=== PATIENT | male | born 1950 | race Caucasian/White ===

== ENCOUNTER 2017-07-08 16:40 | Emergency (ER) | payer OTHER ==
[2017-07-08 16:50] VITALS: BP 127/65
[2017-07-08] MEDS ORDERED: Fluorescein Sodium TOPICAL* 1 MG TEST OPHTHALMIC ONE (17:29)
[2017-07-08] MEDS ORDERED: Proparacaine 0.5% OPHTH.SOL* 15 ML BTL RIGHT EYE ONE (17:29)
[2017-07-08] MEDS ORDERED: Tetracaine 0.5% OPTH.SOL 15ML* BTL ONE (17:37)
--- NOTE | 2017-07-08 17:38 | UC ---
Eye Complaint HPI - HPI Summary HPI Summary: Patient presents with complaints of non-truamtic right eye pain onset this morning lasting 30 minutes, he was on his was to [place] when suddenly the pain just went away. He states that now the pain has returned. He states earlier today the pain was severe, and now he states it is a sharp pain that feels like it is under the lower lid. He reports slight change in his vision, and pain with movement of his right eye. He denies eye drainage, fever or chills. He denies time spent in darkened room prior to symptoms. Prior to the eye pain the patient had been wearing protective glasses. - History of Current Complaint Chief Complaint: UCEye Stated Complaint: EYE COMPLAINT Time Seen by Provider: 07/08/17 17:11 Hx Obtained From: Patient Onset/Duration: Sudden Onset Timing: Intermittent Episode Lasting - 30 minutes this morning at 12:00 lasting until 12:30, and was pain free x one hour, then aroung 1:30 it cam back and has been constant. Severity Initially: Severe Severity Currently: Moderate Aggravating Factor(s): Light Alleviating Factor(s): Other - closing the eye - Risk Factors Penetrating Injury Risk Factor: Negative Acute Glaucoma Risk Factors: Negative - Allergies/Home Medications Allergies/Adverse Reactions: Allergies Allergy/AdvReac Type Severity Reaction Status Date / Time Iodinated Contrast Media Allergy syncope Verified 07/08/17 16:50 [IV CONTRAST DYE] Home Medications: Home Medications Pantoprazole TAB (NF) [Protonix TAB (NF)] 20 mg PO DAILY 07/08/17 [History Confirmed 07/08/17] PMH/Surg Hx/FS Hx/Imm Hx Previously Healthy: Yes - Surgical History Surgical History: Yes Surgery Procedure, Year, and Place: repair of shattered disk in the back, fusion. appendectomy. hernia. CYSTOSCOPY WITH LASER. - 1996 - FRACTURE - Family History Known Family History: Positive: Cardiac Disease, Hypertension - Social History Occupation: Employed Full-time Lives: Alone Alcohol Use: Daily Alcohol Amount: glass of wine a day Substance Use Type: None Smoking Status (MU): Never Smoked Tobacco When Did the Patient Quit Smoking/Using Tobacco: 2-3/WEEK Review of Systems Eyes: Other - right eye pain All Other Systems Reviewed And Are Negative: Yes Physical Exam Triage Information Reviewed: Yes Appearance: Well-Appearing Vital Signs: Initial Vital Signs Temp 98.3 F 07/08/17 16:46 Pulse 57 07/08/17 16:46 Resp 16 07/08/17 16:46 BP 127/65 07/08/17 16:46 Pulse Ox 98 07/08/17 16:46 Eyes: Positive: Conjunctiva Clear, Other: - sclera with mild injection. No foreign body visualized. Eye Complaint Course/Dx - Course Course Of Treatment: Patient presents with complaints of right eye pain sudden onset at noon that lasted one hours then went away and return one hour later and has been constant since then. He denies any significant change in vision, trauma, or recent illnesses. The patient had a similar episode several months ago the resolve spontaneously. Tetracaine drop was placed in the eye, and flurosence stain applied. I did not see foreign body, denrite formation, or corneal abrasions. I did recommend that the patient follow up with Dr. Springer in the morning or if the pain becomes worse to go to the er tonight. He verbalized understading of the discharge plan. - Differential Dx/Diagnosis Differential Diagnosis/HQI/PQRI: Other - eye pain Provider Diagnoses: eye pain Discharge - Discharge Plan Condition: Stable Disposition: HOME Patient Education Materials: Eye Pain (ED) Referrals: Ava Mcgowan MD [Primary Care Provider] - Erik Springer MD [Medical Doctor] -
[2017-07-08] MEDS ORDERED: Tetracaine 0.5% OPTH.SOL 4 ML* 1 DROP BTL RIGHT EYE SCH (18:00)
== END 2017-07-08 17:59 | disposition home or self-care (01) ==
LOC: UCEAST 16:40
DX: H57.11 Ocular pain, right eye (principal)
CPT/HCPCS: 99212; A9270-GY; G0463

== ENCOUNTER 2018-06-02 14:15 | Emergency (ER) | payer SELFPAY ==
[2018-06-02 14:25] VITALS: BP 133/56
--- NOTE | 2018-06-02 14:37 | UC ---
Lower Extremity/Ankle HPI - HPI Summary HPI Summary: 67 y/o male presents to the urgent care c/o Rt ankle pain s/p fall yesterday around 1600pm. Pt reports falling and twisting his Rt ankle. He applied ice and took Tylenol Po for pain. This morning he woke up w/ a lot of pain. He is able to bear weight. Pain is 6/10 w/ walking and movement and 2/10 at rest. Associated w/ moderate swelling in the lateral malleolus. Pt denies fever, calf pain, numbness or tingling over the ankle of foot, SOB, chest pain, abdominal pain, N/v/D. - History of Current Complaint Chief Complaint: UCLowerExtremity Stated Complaint: R ANKLE INJURY Time Seen by Provider: 06/02/18 14:34 Hx Obtained From: Patient Onset/Duration: Sudden Onset, Lasting Days - 1 day, Worse Since - this morning Severity Initially: Moderate Severity Currently: Moderate Pain Intensity: 6 Pain Scale Used: 0-10 Numeric Aggravating Factor(s): Standing, Ambulation Alleviating Factor(s): Rest, Ice Able to Bear Weight: Yes - Risk Factors Gout Risk Factors: Negative DVT Risk Factors: Negative Septic Arthritis Risk Factor: Negative - Allergies/Home Medications Allergies/Adverse Reactions: Allergies Allergy/AdvReac Type Severity Reaction Status Date / Time Iodinated Contrast- Oral and Allergy See Comment Verified 06/02/18 14:25 IV Dye PMH/Surg Hx/FS Hx/Imm Hx Previously Healthy: Yes GI/ History: Kidney Stones - Surgical History Surgical History: Yes Surgery Procedure, Year, and Place: repair of shattered disk in the back, fusion. appendectomy. hernia. CYSTOSCOPY WITH LASER. 1996 - FRACTURE - Family History Known Family History: Positive: Cardiac Disease, Hypertension - Social History Occupation: Retired Lives: With Family Alcohol Use: Daily Alcohol Amount: glass of wine a day Substance Use Type: None Smoking Status (MU): Never Smoked Tobacco When Did the Patient Quit Smoking/Using Tobacco: 2-3/WEEK Review of Systems Constitutional: Negative Skin: Negative Eyes: Negative ENT: Negative Respiratory: Negative Cardiovascular: Negative Gastrointestinal: Negative Genitourinary: Negative Motor: Negative Neurovascular: Negative Musculoskeletal: Decreased ROM - RT ankle, Other: - Rt ankle pain and swelling s /p fall Neurological: Negative Psychological: Negative Is Patient Immunocompromised?: No All Other Systems Reviewed And Are Negative: Yes Physical Exam - Summary Physical Exam Summary: Vital Signs Reviewed: Yes General: well developed, well nourished male, sitting in the examining table w/ o any apparent distress Eyes: Positive: Conjunctiva Clear - PERRLA, EOMI, ENT: Positive: Normal ENT inspection, Hearing grossly normal, Pharynx normal, TMs normal Neck: Positive: Supple, Nontender, No Lymphadenopathy Respiratory: Positive: Chest non-tender, Lungs clear, Normal breath sounds, No respiratory distress Cardiovascular: Positive: RRR, No Murmur, Pulses Normal, Brisk Capillary Refill Abdomen Description: Positive: Nontender, No Organomegaly, Soft. Negative: CVA Tenderness (R), CVA Tenderness (L) Bowel Sounds: Positive: Present Musculoskeletal: - Ankle: Pt is able to bear weight and ambulate w/ limping. The R ankle is without obvious asymmetry or deformity when compared to the L ankle. Decreased ROM due to pain. Moderate swelling at the lateral malleolus, with tenderness to palpation. No ecchymosis or bruising observed. No tenderness to palpation over the medial malleolus , no swelling observed. Talar tilt test is negative for ligament laxity to valgus or varus stress. Negative anterior drawer. Peroneal nerve is intact with strong eversion and plantar flexion. Positive sensation over the Rt foot and Rt ankle, positive pulses, capillary refill intact Neurological Exam: Normal Psychological Exam: Normal Skin: warm and dry Triage Information Reviewed: Yes Vital Signs: Initial Vital Signs Temp 96.7 F 06/02/18 14:19 Pulse 57 06/02/18 14:19 Resp 18 06/02/18 14:19 BP 133/56 06/02/18 14:19 Pulse Ox 98 06/02/18 14:19 Lower Extremity Course/Dx - Course Course Of Treatment: 67 y/o male presents to the urgent care c/o Rt ankle pain s /p fall yesterday around 1600pm. Pt reports falling and twisting his Rt ankle. He applied ice and took Tylenol Po for pain. This morning he woke up w/ a lot of pain. He is able to bear weight. Pain is 6/10 w/ walking and movement and 2/ 10 at rest. Associated w/ moderate swelling in the lateral malleolus. Pt denies fever, calf pain, numbness or tingling over the ankle of foot, SOB, chest pain, abdominal pain, N/v/D.Hx obtained. - Differential Dx/Diagnosis Differential Diagnosis/HQI/PQRI: Fracture (Closed), Sprain, Strain, Tendonitis Provider Diagnoses: 1- Rt ankle pain s/p fall. 2- Discharge - Discharge Plan Condition: Stable Disposition: HOME Referrals: Ava Mcgowan MD [Primary Care Provider] - 1 Week - Billing Disposition and Condition Condition: STABLE Disposition: Home
--- NOTE | 2018-06-02 15:18 | RAD ---
HISTORY: RT ankle pain s/p fall COMPARISONS: None VIEWS: 3, Frontal, lateral, and oblique views of the right ankle FINDINGS: BONE DENSITY: Normal. BONES: There is no displaced fracture. JOINTS: There is no arthropathy. ALIGNMENT: There is no dislocation. SOFT TISSUES: There is mild circumferential soft tissue swelling. OTHER FINDINGS: None. IMPRESSION: SOFT TISSUE SWELLING. NO ACUTE OSSEOUS INJURY. IF SYMPTOMS PERSIST, RECOMMEND REPEAT IMAGING.
== END 2018-06-02 15:45 | disposition home or self-care (01) ==
LOC: UCEAST 14:15
DX: M25.571 Pain in right ankle and joints of right foot (principal); Z91.041 Radiographic dye allergy status; W19.XXXA Unspecified fall, initial encounter; Y92.9 Unspecified place or not applicable; X50.1XXA Overexertion from prolonged static or awkward postures, initial encounter
CPT/HCPCS: 99202; G0463

== ENCOUNTER 2018-08-29 09:41 | Emergency (ER) | payer OTHER ==
--- OUTSIDE RECORDS SUMMARY | 2018-08-29 09:48 | XMS REPORT ---
:1950 External Reference #:[id number] Author Organization [employer] Address [address] [place] [address] [place] [address] Phone [phone] Care Team Providers Name Role Phone Ava Mcgowan MD Primary Care Physician Unavailable Payers Type Date Identification Numbers Payment Provider Subscriber Commercial Policy Number: [id number] [employer] Errol Nelson Group Number: [id number] [address] Group Name: [place] [address] PayID: [id number] Problems Date Description Provider Status Onset: 11/04/2013 Adhesive capsulitis of shoulder Maximo Acevedo M.D. Active Onset: 08/12/2018 Lumbar radiculopathy Jonas Barrientos M.D. Active Onset: 05/04/2015 Displacement of lumbar intervertebral Jonas Barrientos M.D. 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 myelopathy Family History Date Family Member(s) Problem(s) Comments General Cancer Social History Type Date Description Comments Lives With Spouse Occupation Publicity Writer Occupation Currently Working ETOH Use Occasionally consumes alcohol Smoking Patient has never smoked Recreational Drug Use Denies Drug Use Exercise Type/Frequency Exercises regularly Allergies, Adverse Reactions, Alerts Date Description Reaction Status Severity Comments 11/04/2013 IV Contrast active Medications Medication Date Status Form Strength Qnty SIG Indications Ordering Provider Ibuprofen Active Tablets 800mg 90tabs by mouth Unknown 000 three times a day as needed Pantoprazole Active Tablets DR 20mg 1 by Unknown Sodium 000 mouth every day Lorazepam Hx Tablets 1mg 1-2 tabs Ortega, 000 - by mouth MD Ava each day 018 as needed for anxiety. Oxycodone-Aceta 00/00/0 Hx Tablets 5-325mg Ortega, minophen 000 - MD Ava 018 Carisoprodol 00/00/0 Hx Tablets 350mg 1 tab 8h Ortega, 000 - as MD Ava needed 018 Vital Signs Date Vital Result Comment 08/12/2018 Height 68 inches 5'8" Weight 147.00 lb BP Systolic Sitting 130 mmHg BP Diastolic Sitting 80 mmHg Pain Level 1 BMI (Body Mass Index) 22.3 kg/m2 06/22/2015 Weight 137.00 lb Heart Rate 54 /min BP Systolic Sitting 138 mmHg BP Diastolic Sitting 82 mmHg Pain Level 2 L buttock 05/25/2015 Height 68 inches 5'8" Weight 139.00 lb Heart Rate 50 /min BP Systolic Sitting 122 mmHg BP Diastolic Sitting 78 mmHg Pain Level 1 L buttock BMI (Body Mass Index) 21.1 kg/m2 05/04/2015 Height 68 inches 5'8" Weight 139.00 lb Heart Rate 60 /min BP Systolic Sitting 130 mmHg BP Diastolic Sitting 84 mmHg Pain Level 2 back/l leg BMI (Body Mass Index) 21.1 kg/m2 06/30/2014 Height 68 inches 5'8" Heart Rate 57 /min BP Systolic 108 mmHg BP Diastolic 68 mmHg Results Test Date Test Result H/L Range Note Laboratory test finding 08/12/2018 Blood Urea Nitrogen BUN <pending> Creatinine <pending> Procedures Date CPT Code Description Status 12/24/2012 13741 Rad Shoulder Comp, Min. 2 Views Completed Encounters Type Date Location Provider CPT E/M Dx Office Visit 08/12/2018 [facility] Jonas Barrientos M.D. [id number] M54.16 1:50p [facility] Office Visit 06/22/2015 [facility] Jonas Barrientos M.D. [id number] 722.10 9:00a [facility] Office Visit 05/25/2015 [facility] Jonas Barrientos M.D. 11507 722.10 9:00a [facility] Office Visit 05/04/2015 [facility] Jonas Barrientos M.D. [id number] 722.10 11:00a [facility] Office Visit 06/30/2014 [facility] Acevedo M.D. [id number] 840.4 2:15p [facility] Office Visit 02/04/2013 [facility] Maximo Acevedo M.D. 17823 726.0 3:00p [facility] Office Visit 12/24/2012 [facility] Acevedo M.D. 55478 726.2 3:30p [facility] Plan of Care 08/12/2018 - Jonas Barrientos M.D.M54.16 Radiculopathy, lumbar regionNew Xrays: MRI Lumbar Spine W/WoFollow up:After diagnostic study
--- NOTE | 2018-08-29 09:51 | UC ---
Back Pain HPI - HPI Summary HPI Summary: 68 yo male presents with left inguinal pain since yesterday. He is difficult to keep on subject as he tends to end up discussing his chronic lower back issues. From what I am able to gather, he has a left inguinal pain that began yesterday morning without any certain activity. He has not been doing any heavy lifting due to his low back problems. The pain is mild and not aggravated by anything that he can tell, but is alleviated by sleeping. He has not taken any medication for this pain. Denies fever, chills, abdominal pain, n/v/d/c, dysuria. He does have a hx of kidney stones, but says that this feels much different. - History of Current Complaint Stated Complaint: LOWER BACK PAIN Hx Obtained From: Patient Severity Initially: Mild Severity Currently: Mild Pain Intensity: 3 Pain Scale Used: 0-10 Numeric - Allergies/Home Medications Allergies/Adverse Reactions: Allergies Allergy/AdvReac Type Severity Reaction Status Date / Time Iodinated Contrast- Oral and AdvReac See Comment Verified 08/29/18 09:56 IV Dye Home Medications: Home Medications Calcium Carbonate [Calcium] 500 mg PO DAILY 08/29/18 [History Confirmed 08/29/18 ] Magnesium [Magnesium Elemental] 30 mg PO DAILY 08/29/18 [History Confirmed 08/29] PMH/Surg Hx/FS Hx/Imm Hx - Additional Past Medical History Additional PMH: Low back pain - Surgical History Surgical History: Yes Surgery Procedure, Year, and Place: repair of shattered disk in the back, fusion. appendectomy. hernia. CYSTOSCOPY WITH LASER. 1996 - FRACTURE- JAW-. KIDNEY STONES. CYST REMOVED FROM FACE - Family History Known Family History: Positive: Cardiac Disease, Hypertension - Social History Occupation: Retired Lives: With Family Alcohol Use: Daily Alcohol Amount: glass of wine a day Substance Use Type: None Smoking Status (MU): Never Smoked Tobacco When Did the Patient Quit Smoking/Using Tobacco: 2-3/WEEK Review of Systems Constitutional: Negative Skin: Negative Respiratory: Negative Cardiovascular: Negative Gastrointestinal: Negative Genitourinary: Negative Motor: Negative Neurovascular: Negative Musculoskeletal: Other: - left inguinal pain Neurological: Negative Psychological: Negative All Other Systems Reviewed And Are Negative: Yes Physical Exam - Summary Physical Exam Summary: GENERAL: NAD. WDWN. No pain distress. SKIN: No rashes, sores, lesions, or open wounds. NECK: Supple. Nontender. No lymphadenopathy. CHEST: CTAB. No r/r/w. No accessory muscle use. Breathing comfortably and in no distress. CV: RRR. Without m/r/g. Pulses intact. Cap refill <2seconds ABDOMEN: Soft. NTTP. No distention or guarding. No CVA tenderness. Bowel sounds present NEURO: Alert. PSYCH: Age appropriate behavior. Triage Information Reviewed: Yes Vital Signs: Vital Signs: Temp Pulse Resp BP Pulse Ox 98.2 F 64 16 136/62 99 08/29/18 09:48 08/29/18 09:48 08/29/18 09:48 08/29/18 09:48 08/29/18 09:48 Laboratory Tests 08/29/18 10:11 POC Urine Color Yellow POC Urine Clarity Clear POC Urine pH 7.0 POC Ur Specif Verner 1.010 POC Urine Protein Negative POC Ur Glucose (UA) Negative POC Urine Ketones Negative POC Urine Blood Negative POC Urine Nitrite Negative POC Urine Bilirubin Negative POC Urine Urobilinogen 0.2 POC U Leukocyte Esteras Negative Vital Signs Reviewed: Yes Male Genital Exam: Positive: Other - No LAD. LEFT inguinal canal with no appreciable hernia at rest, but with coughing there is a marble sized hernia appreciated that reduces spontaneously. NTTP. Negative: Epididymal Tenderness, Testicular Tenderness (R), Testicular Tenderness (L), Urethral Discharge Back Pain Course/Dx - Course Course Of Treatment: UA negative. I suspect his pain is due to the inguinal hernia vs muscle strain from recent physical therapy due to his low back pain. I will refer him to a general surgeon for further evaluation. - Differential Dx/Diagnosis Provider Diagnoses: Left inguinal hernia Discharge - Sign-Out/Discharge Documenting (check all that apply): Patient Departure All imaging exams completed and their final reports reviewed: No Studies - Discharge Plan Condition: Stable Disposition: HOME Patient Education Materials: Inguinal Hernia (ED) Referrals: Ava Mcgowan MD [Primary Care Provider] - Bryan Coles MD [Medical Doctor] - As Soon As Possible Additional Instructions: If you develop a fever, shortness of breath, chest pain, new or worsening symptoms - please call your PCP or go to the ED. Your blood pressure was mildly elevated at todays visit. Please see your primary provider within 4 weeks for recheck and re-evaluation. 1) I suspect you have a hernia causing your discomfort. Please follow up with your PCP or General Surgeon below for further evaluation - Billing Disposition and Condition Condition: STABLE Disposition: Home
[2018-08-29 09:56] VITALS: BP 136/62
== END 2018-08-29 10:33 | disposition home or self-care (01) ==
LOC: UCEAST 09:41
DX: K40.90 Unilateral inguinal hernia, without obstruction or gangrene, not specified as recurrent (principal); Z91.041 Radiographic dye allergy status
CPT/HCPCS: 81003; 99211; G0463

== ENCOUNTER 2019-10-14 13:27 | Day surgery (SDC) | payer OTHER ==
[~2019-10-14 13:27] MED LIST: Buffered Lidocaine 1% SYRIN* 1 ML/SYRINGE INTRADERM ONE; Lactated Ringers 1000 ML Bag* 1,000 ML IV SCH
[2019-10-14] MEDS ORDERED: Buffered Lidocaine 1% SYRIN* 1 ML/SYRINGE INTRADERM ONE (13:53)
[2019-10-14] MEDS ORDERED: ceFAZolin 2 GM in NS PREMIX(*) 2 GM/100 ML BAG IVPB ONE (13:53)
[2019-10-14] MEDS ORDERED: Mineral Oil Sterile, TOPICAL* 25 ML BTL ONE (16:36)
[2019-10-14] MEDS ORDERED: Lidocaine 1% w EPI 1:100,000* MDV 20 ML VIAL ONE (16:36)
[2019-10-14] MEDS ORDERED: Bupivacaine 0.25% SDV* 30 ML ONE (16:37)
[2019-10-14] MEDS ORDERED: Naloxone* 0.4 MG/ML 1 ML VIAL IV PRN (16:56)
[2019-10-14] MEDS ORDERED: fentaNYL* 50 MCG/ML 2 ML VIAL (100 MCG VIAL) ONE (17:07)
[2019-10-14] MEDS ORDERED: Midazolam* 1 MG/ML 5 ML VIAL (5 MG) ONE (17:07)
[2019-10-14] MEDS ORDERED: Midazolam* 1 MG/ML 2 ML VIAL (2 MG) ONE (17:35)
[2019-10-14 18:47] VITALS: BP 109/56
== END 2019-10-14 19:27 | disposition home or self-care (01) ==
LOC: OR 13:27
PROVIDERS: ATTEND Plastic Surgery
PROC: 0HB2XZZ Excision of Right Ear Skin, External Approach (ICD-10-PCS; principal; 2019-10-14 15:15)
DX: C44.212 Basal cell carcinoma of skin of right ear and external auricular canal (principal); K21.9 Gastro-esophageal reflux disease without esophagitis; I10 Essential (primary) hypertension; Z87.442 Personal history of urinary calculi
CPT/HCPCS: 88305; 88331; 88332; A9270-GY; J0690; J2250; J3010; J3490

== ENCOUNTER 2019-11-07 15:11 | Emergency (ER) | payer OTHER ==
[2019-11-07 15:30] VITALS: BP 144/58
--- NOTE | 2019-11-07 16:21 | UC ---
Complaint Male HPI - HPI Summary HPI Summary: 69-year-old white male presents with urinary frequency, urgency and pain on urination 2 days. Patient has has had urinary workup in the past including prostate biopsy via Dr. Smith the urologist and a history of small renal stones but denies history of UTIs or frequent UTIs. - History of Current Complaint Chief Complaint: UCGU Stated Complaint: POSS UTI Time Seen by Provider: 11/07/19 15:20 Hx Obtained From: Patient Hx From Patient Unobtainable Due To: Other Onset/Duration: Sudden Onset, Lasting Days Timing: Constant Severity Initially: Moderate Severity Currently: Moderate Pain Intensity: 6 - Allergies/Home Medications Allergies/Adverse Reactions: Allergies Allergy/AdvReac Type Severity Reaction Status Date / Time Iodinated Contrast Media AdvReac See Comment Verified 11/07/19 15:30 [Iodinated Contrast- Oral and IV Dye] WALNUTS Allergy Mild Swelling Uncoded 11/07/19 15:30 Of Face,Lips,& Throat PMH/Surg Hx/FS Hx/Imm Hx Previously Healthy: Yes - Surgical History Surgical History: Yes Surgery Procedure, Year, and Place: repair of shattered disk in the back. appendectomy. hernia. CYSTOSCOPY WITH LASER. 1996 - FRACTURE-JAW-. KIDNEY STONES. CYST REMOVED FROM FACE. right ear/skin CA removed 2019 - Family History Known Family History: Positive: Cardiac Disease, Hypertension, Non-Contributory - Social History Alcohol Use: Weekly Alcohol Amount: glass of wine Substance Use Type: None Smoking Status (MU): Never Smoked Tobacco When Did the Patient Quit Smoking/Using Tobacco: 2-3/WEEK Review of Systems All Other Systems Reviewed And Are Negative: Yes Constitutional: Positive: Negative. Negative: Fever, Chills, Fatigue Skin: Positive: Negative Eyes: Positive: Negative ENT: Positive: Negative Respiratory: Positive: Negative Cardiovascular: Positive: Negative Gastrointestinal: Positive: Negative Genitourinary: Positive: Dysuria, Frequency, Urgency. Negative: Hematuria Motor: Positive: Negative Neurovascular: Positive: Negative Musculoskeletal: Positive: Negative Neurological: Positive: Negative Physical Exam - Summary Physical Exam Summary: Vital Signs Reviewed: Yes Eye Exam: Normal Eyes: Positive: Conjunctiva Clear ENT: Positive: Normal ENT inspection Neck: Positive: Supple Respiratory Exam: Normal Respiratory: Positive: Lungs clear Cardiovascular Exam: Normal Cardiovascular: Positive: RRR Abdomen: NT/ND, negative CVA tenderness Musculoskeletal Exam: Normal Neurological Exam: Normal Psychological Exam: Normal Skin Exam: Normal Vital Signs: Initial Vital Signs Temp 37.7 C 11/07/19 15:22 Pulse 69 11/07/19 15:22 Resp 17 11/07/19 15:22 BP 144/58 11/07/19 15:22 Pulse Ox 98 11/07/19 15:22 Complaint Male Course/Dx - Course Course Of Treatment: UA reveals trace leuks and trace blood, we'll start Cipro 500 twice a day and advised follow-up with urology. Will send off a urine culture. - Differential Dx/Diagnosis Provider Diagnosis: Urinary tract infection in male Discharge ED - Sign-Out/Discharge Documenting (check all that apply): Patient Departure All imaging exams completed and their final reports reviewed: Yes - Discharge Plan Condition: Stable Disposition: HOME Prescriptions: Ciprofloxacin TAB* [Cipro 500 MG TAB*] 500 mg PO BID 10 Days #20 tab Patient Education Materials: Urinary Urgency and Frequency (DC) Referrals: Ava Mcgowan MD [Primary Care Provider] - - Billing Disposition and Condition Condition: STABLE Disposition: Home
== END 2019-11-07 16:15 | disposition home or self-care (01) ==
LOC: UCEAST 15:11
DX: N39.0 Urinary tract infection, site not specified (principal); Z91.018 Allergy to other foods; Z91.041 Radiographic dye allergy status
CPT/HCPCS: 81003; 87077; 87086; 87186; 99212; G0463

== ENCOUNTER 2020-07-12 17:51 | Observation (INO) ==
[2020-07-12 18:44] LABS: ABS Basophils 0.1 10^3/ul (0-0.2); ABS Eosinophils 0.1 10^3/ul (0-0.6); ABS Lymphocytes 1.7 10^3/ul (1.0-4.8); ABS Monocytes 0.8 10^3/ul (0-0.8); ABS Neutrophils 6.7 10^3/ul (1.5-7.7); Hematocrit 43 % (42-52); Hemoglobin 14.4 g/dL (14.0-18.0); Lymphocyte % 18.6 %; Mean Corpuscular HGB Conc 33 g/dL (31-36); Mean Corpuscular Hemoglobin 32 pg (27-31); Mean Corpuscular Volume 96 fL (80-94); Mean Platelet Volume 7.4 fL (7.4-10.4); Platelet Count 260 10^3/uL (150-450); Red Blood Count 4.47 10^6 /uL (4.18-5.48); Red Cell Distribution Width 13 % (10-15); White Blood Count 9.4 10^3/uL (3.5-10.8)
[2020-07-12 19:04] LABS: Albumin/Globulin Ratio 1.9 (1-3); BUN/Creatinine Ratio 18.4 (8-20); EGFR African American 122.3 (>60); EGFR Non-African American 101.1 (>60); Globulin 2.1 g/dL (2-4); Potassium 3.9 mmol/L (3.5-5.0); Total Protein 6.1 g/dL (6.4-8.9)
[2020-07-12] MEDS ORDERED: Calcium Carb (TUMS) 500 mg CHEW TAB PO PRN (20:36)
[2020-07-12 20:48] LABS: HDL Cholesterol 71.1 mg/dL
[2020-07-13] MEDS ORDERED: Regadenoson 0.4 MG/5 ML SYRINGE ONE (10:03)
[2020-07-13 11:26] VITALS: BP 114/62
[2020-07-13 13:13] LABS: ABS Eosinophils 0.1 10^3/ul (0-0.6); ABS Lymphocytes 1.2 10^3/ul (1.0-4.8); ABS Monocytes 0.7 10^3/ul (0-0.8); ABS Neutrophils 4.4 10^3/ul (1.5-7.7); Eosinophil % 0.9 %; Hematocrit 41 % (42-52); Lymphocyte % 18.7 %; Mean Corpuscular HGB Conc 34 g/dL (31-36); Mean Corpuscular Hemoglobin 33 pg (27-31); Mean Corpuscular Volume 96 fL (80-94); Mean Platelet Volume 7.7 fL (7.4-10.4); Nucleated Red Blood Cells % 0.1; Platelet Count 233 10^3/uL (150-450); Red Blood Count 4.26 10^6 /uL (4.18-5.48); Red Cell Distribution Width 13 % (10-15); White Blood Count 6.5 10^3/uL (3.5-10.8)
[2020-07-13 13:23] LABS: Activated Partial Thrombo Time 27.6 seconds (26.0-38.0); INR 1.02 (0.82-1.09)
[2020-07-13] MEDS ORDERED: Heparin 5000 UNITS/ML 1 mL VIAL SUBCUT SCH (14:00)
== END 2020-07-13 15:30 | disposition home or self-care (01) ==
LOC: MEDTELE 17:51 → ED 17:51 → MEDTELE 22:10
PROVIDERS: ADMIT Hospitalist; ATTEND Internal Medicine

== ENCOUNTER 2023-08-02 09:52 | Inpatient (IN) ==
[2023-08-02] MEDS ORDERED: Lactated Ringers 1000 ml BAG 1,000 ML IV ONE (10:15)
[2023-08-02] MEDS ORDERED: fentaNYL 100 mcg/2 ml 50 MCG/ML VIAL IV SLOW PU ONE (10:24)
[2023-08-02 10:27] LABS: ABS Basophils 0.1 10^3/uL (0.0-0.1); ABS Eosinophils 0.2 10^3/uL (0.0-0.5); ABS Lymphocytes 1.4 10^3/uL (1.0-4.8); ABS Monocytes 0.5 10^3/uL (0.0-1.1); ABS Neutrophils 2.7 10^3/uL (1.5-7.6); Eosinophil % 3.8 %; Hematocrit 43.1 % (38-53); Lymphocyte % 29.1 %; Mean Corpuscular Hemoglobin 33.2 pg (27-33); Mean Corpuscular Hgb Conc 34.9 g/dL (31-36); Mean Corpuscular Volume 95.1 fL (80-97); Mean Platelet Volume 7.9 fL (7.5-11.2); Nucleated Red Blood Cells % 0.1 /100 WBC (0.0-0.4); Platelet Count 244 10^3/uL (150-450); Red Blood Count 4.53 10^6/uL (4.06-5.63); White Blood Count 4.9 10^3/uL (3.6-10.2)
[2023-08-02 10:35] LABS: INR 1.06 (0.83-1.13)
[2023-08-02 10:47] LABS: Urine Appearance Clear; Urine Bilirubin Negative (Negative); Urine Blood Negative (Negative); Urine Color Straw; Urine Glucose Negative (Negative); Urine Ketones 1+ (Negative); Urine Nitrite Negative (Negative); Urine Protein Negative (Negative); Urine Specific Gravity 1.006 (1.002-1.030); Urine Urobilinogen Negative (Negative)
[2023-08-02] MEDS ORDERED: Ondansetron 4 mg VIAL 2 MG/ML 2 ml VIAL IV ONE (10:51)
[2023-08-02 10:55] LABS: High Sens Troponin Baseline 4 pg/mL (<20)
[2023-08-02 10:59] LABS: ALT 12 U/L (7-52); AST 17 U/L (13-39); Albumin 3.8 g/dL (3.2-5.2); Albumin/Globulin Ratio 1.7 (1-3); Alkaline Phosphatase 56 U/L (35-149); Anion Gap 12 mmol/L (2-16); Blood Urea Nitrogen 15 mg/dL (6-24); CO2 Carbon Dioxide 22 mmol/L (22-32); Calcium 8.8 mg/dL (8.6-10.3); Chloride 105 mmol/L (101-111); Creatinine, Serum 0.81 mg/dL (0.67-1.17); Globulin 2.3 g/dL (2-4); Glucose 140 mg/dL (70-100); Magnesium 1.8 mg/dL (1.9-2.7); Potassium 3.6 mmol/L (3.5-5.0); Sodium 139 mmol/L (135-145); Total Protein 6.1 g/dL (6.4-8.9); eGFR CKD-EPI 92.5 (>60)
[2023-08-02 11:38] LABS: Alcohol, S < 13 mg/dL (<13)
[2023-08-02 12:01] LABS: High Sensitivity Troponin 1 Hr 8 pg/mL (<20)
[2023-08-02] MEDS ORDERED: Magnesium Sulfate IV 1GM/100ML 1 GM/100 ML BAG IV ONE (12:27)
[2023-08-02 12:34] LABS: TSH Ultra Thyroid Stim Horm 4.31 mcIU/mL (0.34-5.60)
[2023-08-02] MEDS ORDERED: Ondansetron 4 mg VIAL 2 MG/ML 2 ml VIAL ONE (13:38)
[2023-08-02] MEDS: Ondansetron 4 mg VIAL 2 MG/ML 2 ml VIAL IV PRN ×3 (13:41→19:40)
[2023-08-02] MEDS ORDERED: Acetaminophen IV 1 GM/100ML 1,000 MG/100 ML BAG IV PRN (13:41)
[2023-08-02] MEDS ORDERED: Magnesium Sulfate 2 gm BAG 2 GM/50 ML BAG IVPB ONE (13:44)
[2023-08-02] MEDS ORDERED: Acetaminophen IV 1 GM/100ML 1,000 MG/100 ML BAG IV ONE ×2 (13:47→20:04)
[2023-08-02 14:12] LABS: Albumin 3.9 g/dL (3.2-5.2); Calcium 8.7 mg/dL (8.6-10.3); Magnesium 2.3 mg/dL (1.9-2.7); Potassium 3.6 mmol/L (3.5-5.0); Total Bilirubin 1.7 mg/dL (0.2-1.0)
[2023-08-02 14:18] LABS: Albumin/Globulin Ratio 1.7 (1-3); Creatinine, Serum 0.73 mg/dL (0.67-1.17); Globulin 2.3 g/dL (2-4); Total Protein 6.2 g/dL (6.4-8.9); eGFR CKD-EPI 95.5 (>60)
[2023-08-02] MEDS ORDERED: Iohexol 350 (CONTRAST) 500 ML MDV IV ONE (14:51)
[2023-08-02] MEDS ORDERED: KCL 20 MEQ/100 ML IVPREMIX 20 MEQ/100 ML BAG IV ONE (15:00)
[2023-08-02] MEDS ORDERED: Cyanocobalamin INJ 1,000 MCG/ML VIAL 1 ML VIAL IM ONE (16:16)
[2023-08-02 17:07] LABS: Direct Bilirubin 0.3 mg/dL (0.03-0.18); Indirect Bilirubin 1.4 mg/dL (0.3-1.0)
[2023-08-02] MEDS ORDERED: Atropine 0.1 MG/ML 10 ml SYR (1 mg) ONE (19:18)
[2023-08-03 05:47] LABS: Calcium 8.3 mg/dL (8.6-10.3); Creatinine, Serum 0.82 mg/dL (0.67-1.17); Magnesium 2.1 mg/dL (1.9-2.7); Potassium 3.4 mmol/L (3.5-5.0); eGFR CKD-EPI 92.2 (>60)
[2023-08-03] MEDS ORDERED: Atropine 0.1 MG/ML 10 ml SYR (1 mg) IV PUSH PRN (19:30)
[2023-08-03] MEDS: Ondansetron 4 mg VIAL 2 MG/ML 2 ml VIAL IV PRN (19:48)
[2023-08-04 06:41] LABS: Calcium 8.2 mg/dL (8.6-10.3); Magnesium 1.9 mg/dL (1.9-2.7)
[2023-08-04 06:47] LABS: Creatinine, Serum 0.74 mg/dL (0.67-1.17); eGFR CKD-EPI 95.1 (>60)
[2023-08-04] MEDS ORDERED: Magnesium Sulfate 2 gm BAG 2 GM/50 ML BAG IVPB ONE (07:49)
[2023-08-04] MEDS ORDERED: Midazolam 10 mg/10 ml VIAL 1 mg/ml 10 ml VIAL (10 mg) IV SLOW PU ONE (08:29)
[2023-08-04] MEDS ORDERED: fentaNYL 100 mcg/2 ml 50 MCG/ML VIAL IV SLOW PU ONE (08:29)
[2023-08-04] MEDS ORDERED: Lidocaine 1% VIAL 10 MG/ML 30 ML VIAL ONE (08:55)
[2023-08-04] MEDS ORDERED: fentaNYL 100 mcg/2 ml 50 MCG/ML VIAL ONE (08:55)
[2023-08-04] MEDS ORDERED: Midazolam 5 mg/5 ml VIAL 1 mg/ml 5 ml VIAL (5 mg) ONE (08:55)
[2023-08-04] MEDS: ceFAZolin 2 GM in NS PREMIX 2 GM/100 ML BAG IVPB ONE ×2 (08:56→12:36)
[2023-08-04] MEDS: ceFAZolin SYR FLUSH 1 GM/10 ML for pocket flush (cardiology) FLUSH ONE ×2 (09:30→12:36)
[2023-08-04] MEDS ORDERED: ceFAZolin VIAL 1 GM in NS 0.9% 50 ML 50 ML IVPB SCH (10:00)
[2023-08-04] MEDS: ceFAZolin 1 GM in Dextrose 1 GM/50 ML BAG IVPB SCH (15:43)
[2023-08-04] MEDS ORDERED: Enoxaparin 40 MG/0.4 ML SYR SUBCUT SCH (21:00)
[2023-08-05] MEDS: ceFAZolin 1 GM in Dextrose 1 GM/50 ML BAG IVPB SCH ×2 (00:40→08:33)
[2023-08-05 06:37] LABS: Creatinine, Serum 0.65 mg/dL (0.67-1.17); Potassium 3.8 mmol/L (3.5-5.0); eGFR CKD-EPI 98.3 (>60)
[2023-08-05] MEDS ORDERED: Potassium Chlor 20 meq TAB.ER PO ONE (07:20)
[2023-08-05 14:20] VITALS: BP 115/63
== END 2023-08-05 15:34 | disposition home or self-care (01) | DRG 229 ==
LOC: ED 09:52 → EDHOLD 16:48 → ICU 16:48
PROVIDERS: ADMIT Internal Medicine Critical Care Medicine; ATTEND Internal Medicine Critical Care Medicine